=== PATIENT | female | born 1965 | race American Indian/Alaskan Native ===

== ENCOUNTER 2020-08-19 06:30 | Day surgery (SDC) | payer OTHER ==
[~2020-08-19] VITALS: Ht 165.1 cm; Wt 101.0 kg
[~2020-08-19 06:30] MED LIST: ANTIOXIDANT VI1 EACH PO; ATENOLOL25 MG PO; AZITHROMYCIN250 MG PO; DOXYCYCLINE HY100 MG PO; FENOFIBRATE160 MG PO; FEXOFENADINE H180 MG PO; FLUTICASONE PRO16 GM NS; LEVOTHYROXINE75 MCG PO; LISINOPRIL10 MG PO; LOVASTATIN20 MG PO; MAGNESIUM400 M1 PO; METAMUCIL FIBE3.4 GM PO; METFORMIN HCL500 MG PO; SINGULAIR10 MG PO; VITAMIN C1000 MG PO; VITAMIN D250000 UNIT PO
--- NOTE | 2020-08-19 07:54 | NUR ---
08/19/20 0754 aPrisa Paez 0750-PATIENT ARRIVED TO PACU ON 2L NC RR EVEN. PATIENT REACTIVE TO VERBAL STIMULI OPENING EYES DENIES PAIN OR NAUSEA. ENCOURAGED TO PASS GAS ABDOMEN SOFT. LAYING LEFT LATERAL. IVF INFUSING. PATIENT DOZES BACK TO SLEEP
--- NOTE | 2020-08-19 08:01 | NUR ---
PT TAKEN FOR SCOPE, CONNECTED WITH WAITING IN RM. ALL QUESTIONS ASKED ANSWERED. GAVE BLESSING, WILL FOLLOW
--- NOTE | 2020-08-19 08:56 | OR ---
[facility] [address], [place] [address] Signed DATE OF OPERATION: 08/19/2020 SURGEON: Vicenta Nails MD PREOPERATIVE DIAGNOSES: 1. Recent diverticulitis of hepatic flexure. 2. Internal hemorrhoids. 3. Personal history of colonic polyps in 2013. POSTOPERATIVE DIAGNOSES: 1. Moderate diverticulosis from hepatic flexure through sigmoid colon. 2. 4 mm polyp at 75 cm. 3. Minimal internal hemorrhoids and skin tags. PROCEDURE: Colonoscopy with hot biopsy. ESTIMATED BLOOD LOSS: None. INDICATIONS: Susana is a 55-year-old female, asked to see me for followup colonoscopy. She describes at least three bouts of diverticulitis at the hepatic flexure near her gallbladder. It all started around 2013. She always does well with antibiotics. Her colonoscopy in 2013 confirmed diverticulosis from hepatic flexure through the sigmoid colon. She had a small adenomatous polyp out of the rectum at 10 cm at the same time. In 2018, she had a repeat colonoscopy because of another bout of diverticulitis, also at hepatic flexure. Again, she had diverticulosis in the small internal hemorrhoids. She also told me her who just went through terrible diverticular disease with surgery requiring a drain and so forth. She developed recurrent pain in the right upper quadrant and had a repeat CT scan herself. Again, diverticulitis. Once again, it responded very nicely to her Augmentin. She had been to see her GI provider. He recommended followup colonoscopy. Currently, she was doing much better in the office. I gave her our brochure on diverticulosis and diverticulitis along with colonoscopy. She understands colonoscopy quite well. There is risk including, but not limited to gas bloating, crampy abdominal pain, bleeding, perforation requiring surgery, and missed diagnosis. She also understands the need for IV conscious sedation. She had expressed understanding and wished to proceed. PROCEDURE NOTE: Electronically Signed By: VICENTA NAILS MD 08/19/20 0856 PATIENT NAME: SUSANA WANG OPERATIVE REPORT DATE OF : 63 REPORT #: [id number] PHYSICIAN: VICENTA NAILS MD PCP: JENNIFER MARVIN MD REPORT IS CONFIDENTIAL AND NOT TO BE RELEASED WITHOUT AUTHORIZATION [facility] [address], [place] [address] Signed Susana was taken into our endoscopy suite and placed in the left lateral decubitus position. She was given IV sedation with 6 mg of Versed and 100 mcg of fentanyl. A digital rectal exam was performed and this was unremarkable. The adult colonoscope was introduced and advanced under direct visualization of camera. It took some extra sedation and abdominal compression in order to get the scope advanced to the left colon and around into the cecum itself. Her prep was quite good. We could easily see the appendiceal orifice and the ileocecal valve. The scope was slowly withdrawn. Once again, she has some diverticula at hepatic flexure and then down through the sigmoid colon. They were moderate in size, moderate in number, and scattered about. No inflammatory changes. She had a small 4 mm polyp at 75 cm. This was easily removed with a hot biopsy forceps. The rectum was unremarkable. Upon retroflexion of scope, she does have small internal hemorrhoid columns with associated skin tags. After this, the gas was suctioned out and the colonoscope removed. Susana tolerated the procedure quite well. RECOMMENDATIONS: I will see Anamaria back in my office in 7 to 14 days to review her results. Vicenta Nails MD ALB/MODL /[id number] cc: Vicenta Nails MD [facility] NP Copies: VICENTA NAILS MD ~ Electronically Signed By: VICENTA NAILS MD 08/19/20 0856 PATIENT NAME: SUSANA WANG OPERATIVE REPORT DATE OF : 63 REPORT #: [id number] PHYSICIAN: VICENTA NAILS MD PCP: JENNIFER MARVIN MD REPORT IS CONFIDENTIAL AND NOT TO BE RELEASED WITHOUT AUTHORIZATION
--- NOTE | 2020-08-20 14:56 | PATH ---
[facility] [address] [place], [place] [address] Signed SPECIMEN(S): A DESCENDING/LEFT COLON POLYP AT 75 CM SPECIMEN SOURCE: A. DESCENDING/LEFT COLON POLYP AT 75 CM CLINICAL HISTORY: History of polyps MICROSCOPIC DESCRIPTION: Histologic sections of all submitted blocks are examined by light microscopy. These findings, together with the gross examination, support the pathologic diagnosis. FINAL PATHOLOGIC DIAGNOSIS: Colon, descending/left, polyp at 75 cm, polypectomy: - Tubular adenoma. - Negative for high-grade dysplasia or malignancy. NAL:cml:C2NR GROSS DESCRIPTION: The specimen, labeled and designated "Joao, descending/left polypectomy at 75 cm," is received in formalin and consists of one castellano soft tissue fragment that measures 0.2 cm in greatest dimension. The specimen is entirely submitted in cassette (A1). VB (under the direct supervision of a pathologist) The Gross Description was prepared using a voice recognition system. The report was reviewed for accuracy; however, sound-alike word errors, addition and/or deletions may occur. If there is any question about this report, please contact Client Services. PERFORMING LABORATORY: The technical component was performed by [facility], [address] [place] [id number] (Tin Flopper: Daisha Mcqueen MD; CLIA# [id number]). [facility] by [facility] [place] [facility], [address] [place] [id number] (CLIA# [id number]). Diagnostician: Ananya Gresham MD Pathologist Electronically Signed 08/20/2020 PATIENT NAME: LIZ WANG PATHOLOGY DATE OF : 63 REPORT #: [id number] PHYSICIAN: [facility] PCP: JENNIFER MARVIN MD REPORT IS CONFIDENTIAL AND NOT TO BE RELEASED WITHOUT AUTHORIZATION [address] [place] [address] Signed Copies: ~ PATIENT NAME: LIZ WANG PATHOLOGY DATE OF : 63 REPORT #: [id number] PHYSICIAN: [facility] PCP: JENNIFER MARVIN MD REPORT IS CONFIDENTIAL AND NOT TO BE RELEASED WITHOUT AUTHORIZATION
== END 2020-08-19 08:25 | disposition home or self-care (01) ==
LOC: DS 06:30 → OPS 06:30 → DS 06:45 → OPS 08:25 → DS 08-27 06:45
PROVIDERS: ATTEND Colon & Rectal Surgery
PROC: 0DBG8ZX Excision of Left Large Intestine, Via Natural or Artificial Opening Endoscopic, Diagnostic (ICD-10-PCS; 2020-08-19)
PROC: 0DBM8ZX Excision of Descending Colon, Via Natural or Artificial Opening Endoscopic, Diagnostic (ICD-10-PCS; principal; 2020-08-19 07:00)
DX: Z12.11 Encounter for screening for malignant neoplasm of colon (principal); D12.4 Benign neoplasm of descending colon; K64.4 Residual hemorrhoidal skin tags; K57.30 Diverticulosis of large intestine without perforation or abscess without bleeding; K64.8 Other hemorrhoids; E11.9 Type 2 diabetes mellitus without complications; E55.9 Vitamin D deficiency, unspecified; E78.00 Pure hypercholesterolemia, unspecified; K70.0 Alcoholic fatty liver; G47.33 Obstructive sleep apnea (adult) (pediatric); E03.9 Hypothyroidism, unspecified; G47.00 Insomnia, unspecified; E66.9 Obesity, unspecified; Z86.010 Personal history of colon polyps; Z79.899 Other long term (current) drug therapy; Z79.890 Hormone replacement therapy; Z79.84 Long term (current) use of oral hypoglycemic drugs; Z88.5 Allergy status to narcotic agent
CPT/HCPCS: 99153; G0500; J2250; J3010; J7121

== ENCOUNTER 2023-01-02 07:20 | Day surgery (SDC) | payer OTHER ==
[2022-12-20 15:56] VITALS: BP 125/75
[~2023-01-02] VITALS: Ht 165.1 cm; Wt 97.0 kg
--- NOTE | ~2023-01-02 | OR ---
[facility] [address] [place], [place] [address] Draft DATE OF OPERATION: 01/02/2023 SURGEON: Jennifer Calabrese DO PREOPERATIVE DIAGNOSES: 1. Postmenopausal bleeding. 2. Fibroid uterus. 3. Type 2 diabetes, well controlled. POSTOPERATIVE DIAGNOSES: 1. Postmenopausal bleeding. 2. Very large fibroid uterus, likely greater than 500 g. 3. Type 2 diabetes, well controlled. 4. Omental adhesions. PROCEDURES PERFORMED: 1. Total laparoscopic hysterectomy with ExCITE technique (contained extracorporeal morcellation). 2. Bilateral salpingo-oophorectomy. 3. Lysis of adhesions. 4. Cystoscopy. BANQUET STEWARD: Michelle Springer MD. ANESTHESIA: General. ESTIMATED BLOOD LOSS: 100 mL. SPECIMEN: 1. Uterus with many fibroids and cervix. 2. Bilateral tubes and ovaries. FINDINGS: Normal external genitalia with normal clitoris, urethra, meatus, bilateral Erath's, Bartholin's glands. Normal vagina and cervix. On laparoscopy, dense omental adhesions just infraumbilical to the anterior abdominal wall. Large multifibroid uterus filling the entire pelvis. Normal tubes and ovaries bilaterally. Hemostatic with excellent PATIENT NAME: LIZ SHEPHERD OPERATIVE REPORT DATE OF : 63 REPORT #: [id number] PHYSICIAN: JENNIFER CALABRESE (ELENA) PCP: [facility] REPORT IS CONFIDENTIAL AND NOT TO BE RELEASED WITHOUT AUTHORIZATION [facility] [address] [place], [place] [address] Draft apical support at the end of the procedure. On cystoscopy, normal bladder with bilateral ureteral jets. COMPLICATIONS: None. INDICATIONS: Ms. Shepherd is a very pleasant 57-year-old postmenopausal female with a long history of fibroid uterus. She had an episode of postmenopausal bleeding and evaluation of the uterus demonstrating no endometrial hyperplasia or malignancy. We reviewed likelihood of continued episodes of postmenopausal bleeding that would require additional evaluation and biopsies, etc. and patient desired definitive treatment with total laparoscopic hysterectomy, bilateral salpingo-oophorectomy and cystoscopy. Risks, benefits, and alternatives were discussed in detail with the patient. The patient understands and wished to proceed with the procedure. TECHNIQUE: The patient was taken to the operating room. A time-out was performed to confirm correct patient, correct procedure. General anesthesia was adequately established and preoperative glucose was within range. The patient was prepped and draped in the dorsal lithotomy position with her feet in Yellofins stirrups. ICPs were on running and the patient received Ancef 2 g as well as heparin 5000 units preoperatively. A Gallardo catheter was inserted. A Kavya retractor was used to visualize the cervix which was then grasped with an Allis clamp and serially dilated using Hegar dilator. An intrauterine VCare uterine manipulator was placed without difficulty. The surgeon's gloves were changed. Attention was turned to the abdomen. Approximately 2 cm below the umbilicus, the skin was infiltrated with 0.25% Marcaine with epinephrine and a curvilinear incision approximately 4 cm in length was made. The fascia was then grasped, elevated, and entered sharply with Metzenbaum scissors and fascial incision was extended bilaterally. Stay sutures of 0 Vicryl were placed in the superior and inferior edge of the fascial incision and the peritoneum was entered bluntly. Upon entering the peritoneum bluntly, infraumbilical omental adhesions were noted, although patient has never had a procedure in this area before. Radha operative port was then placed without difficulty and pneumoperitoneum was established. An 8 mm expanding port was then placed in the right lower quadrant under direct visualization without complication. At this point, LigaSure device was then used to carefully perform the lysis of adhesions without difficulty. A 5 mm assist port was then placed in the left lower quadrant under direct visualization without complication. Normal upper quadrants were identified and large multifibroid uterus was noted filling the entire pelvis. Careful evaluation of the anatomy demonstrated a fairly normal lower uterine segment with no significant adhesions or low lateral fibroids and decision was made to cautiously proceed with total laparoscopic hysterectomy. The right utero-ovarian ligament was PATIENT NAME: LIZ SHEPHERD OPERATIVE REPORT DATE OF : 63 REPORT #: [id number] PHYSICIAN: JENNIFER CALABRESE) PCP: [facility] REPORT IS CONFIDENTIAL AND NOT TO BE RELEASED WITHOUT AUTHORIZATION [facility] [address] [place], [place] [address] Draft fulgurated and divided and the right fallopian tube was fulgurated and divided at the cornu. The round ligament was then fulgurated and divided and the leaves of the broad ligament were divided with the anterior leaf divided down to the edge of the cervical cup and carried across the anterior portion of this. The posterior leaf of the broad ligament was fulgurated and divided down to the uterosacral ligament on the right. The uterine vessels were then identified, fulgurated and divided with excellent hemostasis. Attention was then turned to the left side where the process was repeated with the fulguration division of the utero-ovarian ligament, the fallopian tube and the round ligament. The leaves of the broad ligament were then divided and the vesicovaginal space dissected pushing the bladder well below the vaginal cup. The uterine vessels were identified fulgurated and divided on the left with excellent hemostasis appreciated. This was a fairly difficult process with the large fibroid uterus, but excellent visualization, was able to be maintained throughout the entire process. Colpotomy was then performed using Sonicision device following the edge of the green vaginal cup circumferentially. The VCare uterine manipulator was removed without difficulty and the uterus was determined to be entirely too large to pass through the colpotomy. A wet lap was stuffed into a surgical glove and placed in the vagina to maintain pneumoperitoneum. A large EndoCatch bag was then placed through the umbilical port and the uterus and cervix were placed inside the bag. The bag was then brought through the umbilical incision and retractor was placed in order to provide retraction for the ExCITE technique. The uterus was then grasped with penetrating towel clamps and was more serrated and it contained extracorporeal manner without difficulty. Many fibroids were shelled out and all the uterine contents cervix were delivered through the umbilical incision in the contained manner without difficulty. The bag was inspected at the end and demonstrated no spillage. The uterus, cervix, and a fibroids were sent to Pathology for further evaluation. A Radha operative port was replaced and pneumoperitoneum was established. Colpotomy was then repaired using V-Loc suture with an Endostitch device with careful attention to incorporate the uterosacral ligaments bilaterally as well as to incorporate the vaginal epithelium with each bite. The vagina was closed with excellent apical support and excellent hemostasis appreciated. Small amount of oozing was noted on the left edge of the colpotomy and this was made hemostatic with Sonicision device. Attention was then turned to salpingo-oophorectomy. The left tube and ovary were grasped, elevated, and the infundibulopelvic ligament identified as well as the ureter noted to be well away from this pedicle. The infundibulopelvic ligament was fulgurated and divided with excellent hemostasis and the ends of the IP were then ligated with the endo-stitch device. The process was repeated on the right with identification of the infundibulopelvic ligament. The ureter division and ligation of the infundibulopelvic ligament. The tubes and ovaries were then placed into an EndoCatch bag and delivered through the umbilicus and sent to Pathology for further evaluation. The pelvis was irrigated, found to be hemostatic. Tisseel was applied to the colpotomy and infundibulopelvic ligament cut ends. Excellent hemostasis was appreciated. Pneumoperitoneum was reduced and trocar sites repaired after repair of PATIENT NAME: LIZ SHEPHERD OPERATIVE REPORT DATE OF : 63 REPORT #: [id number] PHYSICIAN: JENNIFER CALABRESE) [facility] REPORT IS CONFIDENTIAL AND NOT TO BE RELEASED WITHOUT AUTHORIZATION [facility] [address] [place] [id number] Draft the infraumbilical fascia with 0 Vicryl. Skin was reapproximated using 4-0 Monocryl in a subcuticular stitch with excellent hemostasis. Attention was then turned to cystoscopy. Gallardo catheter was removed and a 70-degree cystoscope was then placed into the urethral meatus and advanced under direct visualization to the bladder. The bladder was filled. Normal bladder dome and bilateral ureteral jets were appreciated. The bladder was drained. Gallardo catheter was reinserted. The patient was taken to PACU in good and stable condition. Sponge, needle, instrument counts correct x2 at end of the procedure. Dr. Springer was present and participated in all portions of the procedure. DO MARY Ashby/JENNIFFER /[id number] Copies: ~ PATIENT NAME: LIZ SHEPHERD OPERATIVE REPORT DATE OF : 63 REPORT #: [id number] PHYSICIAN: JENNIFER CALABRESE DO (JD) PCP: [facility] REPORT IS CONFIDENTIAL AND NOT TO BE RELEASED WITHOUT AUTHORIZATION
[~2023-01-02 07:20] MED LIST changes: +HYDROCHLOROTH12.5 MG PO
[2023-01-02 07:37] VITALS: BP 140/72
[2023-01-02 15:35] VITALS: BP 124/79
--- NOTE | 2023-01-02 15:55 | NUR ---
01/02/23 1555 Kathleen Heck 1439 PT ARRIVED IN PACU NON RESPONSIVE TO NOXIOUS STIMULI WITH OPA IN PLACE. [address] AWARE. 1455 PT REACTIVE. OPA REMOVED. 1459 OXYGEN REMOVED. SATS 95% ON RA. 1505 C/O DRY MOUTH. TAKING SMALL SIPS OF WATER. 1519 C/O NAUSEA. ZOFRAN 4MG GIVEN IVP. 1523 C/O ABD PAIN 8/10. FENTANYL 50MCG GIVEN IVP. 1530 HAYLEY BECKFORD'Shirin. TIP INTACT. 1535 TO DS. RATES ABD PAIN 6/10 AND TOLERABLE AT THIS TIME. REPORT GIVEN TO RN. AT BEDSIDE.
--- NOTE | 2023-01-02 16:16 | NUR ---
1535: PT RETURNS TO UNIT VIA STRETCHER FROM PACU. AWAKE AND ALERT ON ARRIVAL. HOLDS APPROPRIATE CONVERSATION. VSS, RESP EVEN AND UNLABORED. REPORTS URGE TO VOID. DISCUSSED BLADDER SPASMS WITH PT. DANGLED AT THE BEDSIDE, MACARENA WELL. DENIES DIZZINESS AND SOB. TRANSFERS TO COMMODE WITH ASSISTANCE. VOIDS DROPS. BACK TO STRETCHER. SCDS IN PLACE. DRESSINGS C/D/I X3. DENIES PAIN AND NAUSEA. MACARENA PO INTAKE. IV CONVERTED TO SL. POC DISCUSSED AND PT AGREEABLE. NO NEEDS VOICED AT THIS TIME. ATTENTIVE AT THE BEDSIDE. CALL LIGHT WITHIN REACH
[2023-01-02 17:03] VITALS: BP 153/71
--- NOTE | 2023-01-02 17:05 | NUR ---
1640: FELICIANO, DO ON THE UNIT. UPDATED ON PT STATUS. POSTOP PRESCRIPTION PROVIDED TO . PT REPORTING URGE TO VOID. VS, RESP EVEN AND UNLABORED. DANGLES AT THE BEDSIDE. AMBULATES TO BR WITH STANDBY FROM THIS RN. STEADY GAIT. SUCCESSFUL FIRST POSTOP VOID, 175MLS. UMBILICAL SITE WITH MOD AMOUNT OF RED DRAINAGE. REINFORCED WITH GAUZE AND TAPE. DRESSED WITH ASSISTANCE AND BACK INTO STRETCHER. TAKES RX TO PHARMACY. PT BEGINS TO REPORT INCREASING PAIN, 11/02. RX ADMINSTERED ORDERED. NO FURTHER NEEDS, CALL LIGHT WITHIN REACH
[2023-01-02 17:40] VITALS: BP 155/77
--- NOTE | 2023-01-02 17:58 | NUR ---
1640: [facility] UNABLE TO FILL RX THIS EVENING. HOSPITAL PHARM[facility] TO PUT TOGETHER TAKE HOME PACK. VSS, RESP EVEN AND UNLABORED. PT REPORTS IMPROVED PAIN, 3/10. LAP SITES UNCHANGED FROM LAST ASSESSMENT. DENIES NAUSEA AND CONTS TO MACARENA PO INTAKE. 1655: SL REMOVED WITH CATH TIP INTACT AND PRESSURE APPLIED TO SITE, WNL.
--- NOTE | 2023-01-02 18:20 | NUR ---
1820: TAKE HOME PACK RECEIVED AND PROVIDED. PT WHEELD OFF OF UNIT AT THIS TIME BY AKASH ODELL. NO PHYSICAL S/S OF DISTRESS
--- NOTE | 2023-01-05 15:10 | PATH ---
[facility] [address] [place], [place] [address] Signed SPECIMEN(S): A BILAT OVARIES AND TUBES AND UTERUS SPECIMEN SOURCE: Yesy JASMINE OVARIES AND TUBES AND UTERUS CLINICAL HISTORY: Intramural leiomyoma of uterus. FINAL PATHOLOGIC DIAGNOSIS: Bilateral ovaries, tubes, and uterus: - Morcellated uterus with atrophic endometrium, negative for hyperplasia or atypia. - Benign myometrial leiomyomas. - Benign endocervix. - Benign bilateral ovaries and oviducts. - Incidental benign paratubal serous cyst. - See Comment. COMMENT: Ectocervix is not identified grossly or microscopically. AriannaVR:destin MICROSCOPIC EXAMINATION: Histologic sections of all submitted blocks are examined by light microscopy. These findings, together with the gross examination, support the pathologic diagnosis. GROSS DESCRIPTION: The specimen, labeled and designated "Dilan Wang" and designated on the requisition "bilateral ovaries, tubes and uterus," is received in formalin and consists of a morcellated uterus (518 grams, 17.5 x 15.5 x 5.8 cm in aggregate) with bilateral fimbriated fallopian tube segments (left: 3.4 cm in length by 1.2 cm in diameter, right: 5.4 cm in length and ranging in diameter from 0.7 to 1.0 cm) and pink-castellano nodular ovaries (left: 2.5 x 1.7 x 1.6 cm, right: 2.6 x 1.6 x 1.4 cm). No ectocervix is grossly identified. The fallopian tube segments are sectioned reveal castellano-pink soft cut surfaces. The ovaries are sectioned to reveal castellano-brown soft cut surfaces. The remainder the specimen shows castellano-pink trabeculated myometrium, pink-castellano to red-brown uterine serosa, castellano smooth possible endometrium (0.1 cm in thickness), possible endocervical mucosa, and PATIENT NAME: LIZ WANG PATHOLOGY DATE OF : 63 REPORT #: [id number] PHYSICIAN: BRYSON BOOTH PCP: [facility] REPORT IS CONFIDENTIAL AND NOT TO BE RELEASED WITHOUT AUTHORIZATION [facility] [address] [place], [place] [address] Signed multiple castellano-pink nodules ranging in size from 1.3 to 5.5 cm in greatest dimension, and measuring 15.0 x 13.0 x 5.4 cm in aggregate. Block Stacker sections are submitted. Cassette Summary: (A1-A2) fallopian tubes (A3-A4) ovaries (A5) possible endocervix (A6) possible endomyometrium (A7-A11) nodules AC (under the direct supervision of a pathologist) The Gross Description was prepared using a voice recognition system. The report was reviewed for accuracy; however, sound-alike word errors, addition and/or deletions may occur. If there is any question about this report, please contact Client Services. PERFORMING LABORATORY: Technical component was performed by [facility], [address] [place] [id number] (CLIA# [id number]). Professional interpretation was performed by [email or web address], [address] [place] [id number] (CLIA#: [id number]). Diagnostician: Jason Gallegos MD Pathologist Electronically Signed 01/05/2023 Copies: ~ PATIENT NAME: FELIPELIZ PATHOLOGY DATE OF : 63 REPORT #: [id number] PHYSICIAN: [facility] PCP: [facility] REPORT IS CONFIDENTIAL AND NOT TO BE RELEASED WITHOUT AUTHORIZATION
== END 2023-01-02 18:20 | disposition home or self-care (01) ==
LOC: DS 07:20 → OPS 07:20 → DS 07:30 → OPS 09:30
PROVIDERS: ATTEND Obstetrics & Gynecology
PROC: 0UT94ZZ Resection of Uterus, Percutaneous Endoscopic Approach (ICD-10-PCS; principal; 2023-01-02 09:30)
PROC: 0UT74ZZ Resection of Bilateral Fallopian Tubes, Percutaneous Endoscopic Approach (ICD-10-PCS; 2023-01-02 09:30)
PROC: 0UT24ZZ Resection of Bilateral Ovaries, Percutaneous Endoscopic Approach (ICD-10-PCS; 2023-01-02 09:30)
DX: D25.1 Intramural leiomyoma of uterus (principal); E11.9 Type 2 diabetes mellitus without complications; N95.0 Postmenopausal bleeding
CPT/HCPCS: 00840; A9270; J0690; J1100; J1644; J1885; J2001; J2250; J2405; J2704; J3010; J3490; J7121